=== PATIENT | female | born 1950 | race Caucasian/White ===

== ENCOUNTER 2017-02-10 13:24 | Observation (INO) | payer BC, OTHER ==
--- NOTE | ~2017-02-10 | EKG ---
PATIENT: PEMA MAYER UNIT #: [id number] Ventricular Rate: 74 BPM Atrial Rate: 74 BPM P-R Interval: 142 ms QRS Duration: 90 ms Q-T Interval: 414 ms QTC Calculation(Bezet): 459 ms P Everett: 71 degrees Calculated R Everett: -29 degrees Calculated T Everett: 47 degrees Diagnosis Line: Normal sinus rhythm Diagnosis Line: Normal ECG Diagnosis Line: When compared with ECG of 19-FEB-2011 08:50, Diagnosis Line: No significant change was found Diagnosis Line: Confirmed by NEO TAMAYO MD ([id number]) on 02/11/2017 Diagnosis Line: 10:01:34 AM INTERPRETING MD: BELKIS AMAYA
--- NOTE | ~2017-02-10 | CT71 ---
[facility] A Service of [facility] RADIOLOGY TEXT RESULTS PATIENT: PEMA MAYER LOCATION: [facility] [place] [id number] : 51 UNIT #: [id number] AGE: [address]: Valeri Monsivais MD SEX: F ORDER DR: [id number] [facility] [address] [place], [place] [address] [id number] E MR#: [id number] Acc #: [id number] NAME: PEMA MAYER. : 1950 SEX: F STUDY DATE/TIME: 02/10/2017 14:55 UNIT: [facility] ROOM: STUDY DESCRIPTION: CT Head Wo Contrast Attending Physician: Stone Mishra M.D. Ordering Physician: Stone Mishra M.D. Primary Care Physician: Vamsi Lam M.D. MEDICAL IMAGING REPORT This report is preliminary unless electronic signature is present EXAM CT head without contrast HISTORY Focal neurologic defect and confusion starting today at 08:19. TECHNIQUE Axial CT images were obtained from vertex of the skull through skull base intravenous contrast was administered. This CT exam was performed with one or more of the following radiation dose reduction techniques: automatic exposure control, adjustment of mA and/or kV according to patient size, and iterative reconstruction. FINDINGS No acute cranial hemorrhage is identified. The brain parenchyma is normal in attenuation without focal areas of decreased attenuation seen. There is no midline shift or mass effect. No aggressive osseous abnormalities are seen. Visualized paranasal sinuses are clear. There is partial opacification of the right mastoid air cells, which is new when compared to the prior study. There are no focal soft tissue abnormalities. IMPRESSION 1. No acute intracranial process identified. Specifically, there is no evidence of acute hemorrhage, mass lesion or acute infarct. 2. Patient does have partial opacification of mastoid air cells on the right side, a new finding when compared to the prior study. Dictated by... Bertha Leavitt M.D. THIS IS AN ELECTRONICALLY VERIFIED REPORT [facility] A Service of [facility] RADIOLOGY TEXT RESULTS PATIENT: PEMA MAYER LOCATION: [facility] [place] [id number] : 51 UNIT #: [id number] AGE: [address]: Valeri Monsivais MD SEX: F ORDER DR: Bertha Leavitt M.D. at 02/10/2017 5:24 PM AFF/pcl TD: 02/10/2017 17:01 JOB #: [id number] MEDICAL IMAGING REPORT Page 1 of 1 COPY
--- NOTE | ~2017-02-10 | CR72 ---
[facility] A Service of [facility] RADIOLOGY TEXT RESULTS PATIENT: PEMA MAYER LOCATION: [facility] [id number] : 51 UNIT #: [id number] AGE: [address]: Valeri Monsivais MD SEX: F ORDER DR: [id number] [facility] [address] [place], [place] [address] [id number] E MR#: [id number] Acc #: [id number] NAME: PEMA MAYER. : 1950 SEX: F STUDY DATE/TIME: 02/10/2017 14:03 UNIT: [facility] ROOM: STUDY DESCRIPTION: CR Chest Single View Portable Attending Physician: Stone Mishra M.D. Ordering Physician: Stone Mishra M.D. Primary Care Physician: Vamsi Lam M.D. MEDICAL IMAGING REPORT This report is preliminary unless electronic signature is present EXAM Portable chest HISTORY Chest pain and shortness of air for 1 week. FINDINGS The cardiac size and pulmonary vascularity are normal. Minimal linear atelectasis or scarring in the lateral left base. Mild left mid thoracic curve. The remainder of the chest is negative. No evidence of active disease. IMPRESSION No acute findings and no active disease. Dictated by... Yan Lozano M.D. THIS IS AN ELECTRONICALLY VERIFIED REPORT Yan Lozano M.D. at 02/10/2017 5:47 PM CARMEN/bao TD: 02/10/2017 16:25 JOB #: [id number] MEDICAL IMAGING REPORT Page 1 of 1 COPY
--- NOTE | ~2017-02-10 | CO ---
Unit #: [id number] #: [id number] Patient: PEMA MAYER [id number] [facility] [address] [place], [place] [address] [id number] I MR#: [id number] NAME: PEMA MAYER. ROOM: 335 Age: 66 Sex: F Admission Date: 02/10/2017 : 1950 Attending Physician: Saritha Bales M.D. Primary Care Physician: Vamsi Lam M.D. Requesting Physician: Valeri Monsivais M.D. Consultation Date: 02/10/2017 CONSULTATION REPORT REASON FOR CONSULTATION Chest pain. HISTORY OF PRESENT ILLNESS Ms. Mayer is a pleasant, 66-year-old female seen in room 14 in [facility] emergency room. She has no prior cardiac history. She does have a history of hypertension, dyslipidemia. She has only smoke one pack of cigarettes in her whole life. She has had chest pains on her left side, specifically with her left breast area, since her son was bone 40 years ago she states. She cannot sleep on her left side. 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 Thus she is a very active woman, and does not develop any cardiac symptoms with these activities. Today she was working at [employer], and experienced three sharp pains, that when straight through the left upper chest, approximately 1 o'clock on her breast. She states that she also felt some sinus drainage, from the top left side of her head, into her left jaw. This occurred at the same time. These symptoms had occurred last week, again three sharp pains. Also the jaw pain, but it was nowhere near as severe as today. These episodes would last less than 10 seconds each, not be associated with exertion nor relieved by rest. They were not associated with diaphoresis, dyspneic, or nausea. There was no particular exacerbating or relieving factor. She has noticed many episodes like this over the past several weeks, but last week and this week were the most prominent. The unusual thing about today's episode, which prompted admission was slurred speech. This lasted less than 30 seconds. She was talking to a customer at [employer], and absolutely could not find the right words to say. She did not find any weakness in her body, nor any paraesthesias. This symptom did not recur, but after it was over she felt "weird", sounds like malaise, with tremor and shakiness, but without fever or chills. She has not experienced any PND, orthopnea, syncope, or presyncope. Upon presentation to [facility] emergency room, an ECG dated 02/10/2017 at 13:[address] changes. Left axis deviation was present. Labs show hemoglobin 13.7, white blood count 10.1, platelet count 305,000. Urinalysis was normal. Total cholesterol is 265, Unit #: [id number] #: [id number] Patient: PEMA MAYER triglycerides 457, HDL 47, LDL not calculated. Magnesium still pending. Potassium 3.9, creatinine 0.5. PAST MEDICAL HISTORY 1. 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 No stents or major cardiac procedures were performed. 2. Hypertension. 3. Dyslipidemia. 4. Borderline diabetes. 5. No tobacco abuse. She tried tobacco years ago, only one pack total. FAMILY HISTORY Possible family history of coronary disease, father dying in his 40s suddenly. Mother had CABG at age 75. REVIEW OF SYSTEMS As per history of present illness. Otherwise, as stated below. GENERAL: No recent fever or chills. No recent weight change. ENDOCRINE: Negative for thyroid disease. HEENT: No auditory or visual disturbances. GASTROINTESTINAL: No melena, no hematochezia. RESPIRATORY: No wheezing or significant dyspnea. CARDIOVASCULAR: Vide supra. GENITOURINARY: No dysuria. No back pain suggestive of nephrolithiasis. NEUROLOGIC: No seizure disorder, recent CVA, or TIA. PSYCHOLOGICAL: No depression. MEDICATIONS Norvasc 5 mg daily, Prilosec daily, Zyrtec daily, cranberry, Aleve, B complex, melatonin. ALLERGIES Oxycodone causes hallucinations. Lactose causes diarrhea. Codeine causes upset stomach. SOCIAL HISTORY Works at [employer], nonsmoker, nondrinker. PHYSICAL EXAMINATION GENERAL: Pleasant, alert, no acute distress. VITAL SIGNS: Blood pressure is 144/78, heart rate is 76 and regular, respiratory rate is 16, height 5 feet 4 inches, weight 220 SKIN: Warm and dry. No xanthelasma. MUSCULOSKELETAL: No missing digits. Moves easily for evaluation. NEUROLOGICAL: Appropriate mood and affect. Alert and oriented x3. HEENT: Pupils equal, round and reactive. No oral cyanosis. No icterus. NECK: Carotids clear to auscultation with no carotid bruits. Normal carotid upstroke bilaterally. Thyroid is normal in size and texture without masses or tenderness. CHEST: Significant tenderness left breast, both left submammary, and left supramammary. Overall left breast is very tender, right breast is normal. Clear to auscultation with no rales or wheezes. Good effort. CARDIAC: Normal point of maximum impulse. Normal S1 and S2. No S3, S4 or rub. ABDOMEN: No hepatosplenomegaly, masses or tenderness. Normal bowel sounds. No abdominal bruits heard. Unit #: [id number] #: [id number] Patient: PEMA MAYER EXTREMITIES: No clubbing, cyanosis or edema. Excellent posterior tibial and dorsalis pedis pulses. DIAGNOSTIC STUDIES As above. IMPRESSION 1. Atypical chest pain: I think this is musculoskeletal. She has pendulous breasts, and states that she cannot sleep on her left side. My guess is that some of the pulling of her breast on her support structure is contributing to the pain. May want to consider either CT of the chest regarding atypical pain, or mammogram. I did not perform any type of evaluation on this. I think it would be reasonable to check an echo, and check a stress test, since she is at moderate risk and has an abnormal ECG. We will do a walking Lexiscan. 2. Hypertension: Well treated, fairly well controlled. We will follow this. 3. Dyslipidemia: I think she is probably diabetic, based on her triglycerides. 4. Obesity, with BMI 37. 5. Longtime left breast pain, greater than 40 years. Discussed above. 6. Slurred speech with possible TIA today. Carotid ultrasound, and possible neuro consult. RECOMMENDATIONS 1. Stress test and echo. 2. Check carotids. 3. Possible evaluation of left breast with either CT of mammogram. 4. Check for sleep apnea. 5. Preventive lifestyle measures would be advocated for this patient at the minimum. If there is anything found on the stress test, we will proceed with invasive monitoring. Thank you very much for this consultation. We will follow with you. Dictated by... Ambrose Rhodes M.D. FANNY/caden TD: 02/11/2017 08:45 JOB #: [id number] CONSULTATION REPORT Page 1 of 1 X Ambrose Rhodes MD X CONSULTATION REPORT
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
--- NOTE | ~2017-02-10 | US37 ---
[facility] A Service of [facility] RADIOLOGY TEXT RESULTS PATIENT: PEMA MAYER LOCATION: [facility] 335- : [birth year] UNIT #: [id number] AGE: [address]: Valeri Monsivais MD SEX: F ORDER DR: [id number] [facility] [address] [place], [place] [address] [id number] I MR#: [id number] Acc #: [id number] NAME: PEMA MAYER. : 1950 SEX: F STUDY DATE/TIME: 02/10/2017 21:22 UNIT: [address] ROOM: [facility] STUDY DESCRIPTION: US Carotid W/Doppler Bilateral Attending Physician: Valeri Monsivais M.D. Ordering Physician: Ambrose Rhodes M.D. Primary Care Physician: Vamsi Lam M.D. MEDICAL IMAGING REPORT This report is preliminary unless electronic signature is present EXAM Carotid ultrasound. Confusion and memory loss today. Loss of balance for 1 month. Slurred speech. FINDINGS Ultrasound examination of the carotid arteries demonstrates minimal plaque in the proximal bifurcation vessels bilaterally. Peak systolic velocity in the internal carotid arteries is 208 cm per second on the right and 111 cm per second on the left. This indicates a 50% to 69% diameter stenosis in the right internal carotid artery and less than 50% stenosis in the left internal carotid artery, by NASCET criteria. There is antegrade flow in both vertebral arteries. The external carotid arteries are patent bilaterally. IMPRESSION 1. A 50% to 69% diameter stenosis in the mid right internal carotid artery by NASCET criteria. 2. Less than 50% stenosis in the left internal carotid artery. 3. Mild plaque in the proximal bifurcation vessels bilaterally. 4. Antegrade flow in both vertebral arteries. Dictated by... Yan Lozano M.D. THIS IS AN ELECTRONICALLY VERIFIED REPORT Yan Lozano M.D. at 02/10/2017 11:33 PM DFBrianne/mason [facility] A Service of [facility] RADIOLOGY TEXT RESULTS PATIENT: PEMA MAYER LOCATION: [facility] 335-01 : [birth year] UNIT #: [id number] AGE: [address]: Valeri Monsivais MD SEX: F ORDER DR: TD: 02/10/2017 22:49 JOB #: [id number] MEDICAL IMAGING REPORT Page 1 of 1 COPY
--- NOTE | ~2017-02-10 | ST ---
Unit #: [id number] #: [id number] Patient: PEMA MAYER [id number] [address] [address] [id number] I MR#: [id number] NAME: PEMA MAYER. : 1950 SEX: F STUDY DATE/TIME: 02/11/2017 UNIT: C3A PCU ROOM: 335 STUDY DESCRIPTION: Ambrose Rhodes M.D. Attending Physician: Saritha Bales M.D. Primary Care Physician: Vamsi Lam M.D. CARDIOLOGY REPORT EXAM Stress nuclear and ECG combined. SUMMARY The patient received Lexiscan while walking, as well as Technetium 99 Cardiolite 12.0 and 33.1 mCi at rest and stress respectively. Appropriate views were obtained. FINDINGS The patient's heart rate increased from 63 to 85 and blood pressure decreased from 141/78 to 79/47. The patient did not voice any symptoms during this time. The rest and stress ECG showed no diagnostic ST shifts. Technetium 99 Cardiolite images demonstrated apical thinning but normal perfusion both at rest and stress. There is intestinal artifact present both at rest and stress. Planar images demonstrate no significant patient motion at rest, with mild motion noted at stress. Breast attenuation artifact is present. Summed stress scores is 0. Gated perfusion wall motion analysis demonstrates end-diastolic volume 59 mL, ejection fraction greater than 65%. IMPRESSION 1. Myocardial perfusion scan demonstrates no ischemia or infarction. 2. Normal wall motion with excellent ejection fraction. 3. Normal Lexiscan stress ECG with walking. 1. Dictated by... Ambrose Rhodes M.D. FANNY/caden TD: 02/11/2017 13:06 JOB #: [id number] Unit #: [id number] #: [id number] Patient: PEMA MAYER CARDIOLOGY REPORT Page 1 of 1 X Ambrose Rhodes MD CARDIOLOGY REPORT
--- NOTE | ~2017-02-10 | MR18 ---
[facility] A Service of [facility] RADIOLOGY TEXT RESULTS PATIENT: PEMA MAYER LOCATION: [facility] 335-01 : 51 UNIT #: [id number] AGE: [address]: Saritha Bales MD SEX: F ORDER DR: [id number] [facility] [address] [place], [place] [address] [id number] I MR#: [id number] Acc #: [id number] NAME: PEMA MAYER. : 1950 SEX: F STUDY DATE/TIME: 02/10/2017 18:47 UNIT: A U ROOM: [facility] STUDY DESCRIPTION: MR Brain Wo Contrast Attending Physician: Saritha Baels M.D. Ordering Physician: Valeri Monsivais M.D. Primary Care Physician: Vamsi Lam M.D. MRI CENTER REPORT This report is preliminary unless electronic signature is present. EXAM MRI brain without HISTORY Slurred speech for a week, seizure disorder history, hypertension, stroke/TIA, blood disorder, diabetes. Left facial, shoulder and chest pain. No known injury or cancer. COMMENT MRI of the brain was performed without contrast using routine 1.5T imaging technique. COMPARISON There is a head CT for comparison from 02/10/2017. FINDINGS There is a preliminary wet reading by Dr. Dasilva 201102/10/2017. No evidence for a recent ischemic insult on the diffusion series. Midline structures are unremarkable. There is fluid or inflammatory change in the right side mastoid air cells. Mild white matter signal abnormality is nonspecific likely due to small vessel disease with asymmetrically more prominent involvement in the right cerebral hemisphere. Most focal disease in the periatrial white matter. No extraaxial fluid collection. No intracranial mass effect. The major intracranial flow voids are maintained. The paranasal sinuses are essentially clear. Likely some subtle signal abnormality in the william due to small vessel disease. Mild prominence of perivascular space is noted in general. No MRI evidence for intracranial hemorrhage. IMPRESSION 1. No evidence for a recent ischemic insult on the diffusion series. [facility] A Service of [facility] RADIOLOGY TEXT RESULTS PATIENT: PEMA MAYER LOCATION: [facility] 335-01 : [birth year] UNIT #: [id number] AGE: [address]: Saritha Bales MD SEX: F ORDER DR: 2. Mild probable sequelae of small vessel disease. 3. Small amount of fluid or inflammatory change, right side mastoid air cells. STAT * RESULT Dictated by... Angelica Hussein M.D. THIS IS AN ELECTRONICALLY VERIFIED REPORT Angelica Hussein M.D. at 02/11/2017 2:52 PM TONY/alessio TD: 02/11/2017 09:12 JOB #: [id number] MRI CENTER REPORT Page 1 of 1 COPY
[~2017-02-10 13:24] MED LIST: ACETAMINOPHEN500 M3 PO; ALEVE220 M1 PO; BENADRYL D ALL PO; BENADRYL PO; CIPRO PO; GARLIC; GAS RELIEF125 MG PO; METAMUCIL283 GM PO; MILK OF MAGNESIA PO; NIACIN OTC; NIACIN500 M2 PO; OMEPRAZOLE; OMEPRAZOLE20 M1 PO; OMEPRAZOLE20 M2 PO; ORUDIS75 M1 DOB; OTC ALLERGY MED; OTC CHOLESTEROL MED; PERCOCET10 PO; PERCOCET5/325 PO; PHENERGAN25 M1 PO; PHENERGAN25 MG; POTASSIUM99 M1 PO; PREVACID PO; TYLENOL EXTRA500 M1 PO; [UNRECOGNIZED DRUG - OTHER]; [UNRECOGNIZED DRUG - OTHER] PO
[2017-02-10 13:58] LABS: BASOPHIL% 0.5 % (0-2.5); EOSINOPHIL# 0.1 X10e3 (0-0.7); EOSINOPHIL% 1.4 % (0.0-7.0); HEMATOCRIT 40.3 % (35.0-45.0); HEMOGLOBIN 13.7 gm/dL (12.0-16.0); LYMPHOCYTE% 29.4 % (17.0-45.0); MEAN CELL VOLUME 88.6 FL (83-96); MEAN CORPUSCULAR HGB CONC 33.9 g/dL (30-36); MEAN PLATELET VOLUME 8.4 FL (6.5-11.5); MONOCYTE# 0.5 X10e3 (0-1.0); MONOCYTE% 5.4 % (3.0-12.0); NEUTROPHIL# 6.4 X10e3 (1.5-7.1); NEUTROPHIL% 63.3 % (40-75); PLATELET COUNT 305 X10e3 (140-420); RED BLOOD COUNT 4.55 X10e (3.90-5.30); WHITE BLOOD COUNT 10.1 X10e3 (4.0-10.5)
[2017-02-10 14:00] LABS: DIFF IND NO
[2017-02-10 14:16] LABS: PARTIAL THROMBOPLASTIN TIME 24.9 SECONDS (23.5-31.3); PROTHROMBIN TIME (PATIENT) 10.5 SECONDS (9.6-11.5)
[2017-02-10] MEDS ORDERED: NORVASC PO (14:20)
[2017-02-10 14:22] LABS: URINE SOURCE CLEAN CATCH
[2017-02-10 14:26] LABS: POC - CKMB 1.3 ng/mL (0.0-7.9); POC - TROPONIN <0.05 ng/mL (<=0.05)
[2017-02-10] MEDS ORDERED: PRILOSEC (14:26)
[2017-02-10] MEDS ORDERED: ZYRTEC10 M1 (14:26)
[2017-02-10] MEDS ORDERED: CRANBERRY405 MG (14:27)
[2017-02-10] MEDS ORDERED: B COMPLEX1 EACH (14:27)
[2017-02-10] MEDS ORDERED: ALEVE220 M1 (14:27)
[2017-02-10] MEDS ORDERED: MELATONIN5 M1 PO (14:28)
[2017-02-10 14:29] LABS: ALBUMIN SERUM 4.2 g/dL (3.5-5.0); ALKALINE PHOSPHATASE 66 U/L (32-92); ALT (SGPT) 24 U/L (10-40); AST (SGOT) 23 U/L (10-42); BILIRUBIN,TOTAL 0.5 mg/dL (0.2-2.0); BLOOD UREA NITROGEN 18 mg/dL (9-23); CALCIUM SERUM 9.1 mg/dL (8.4-10.2); CARBON DIOXIDE 24 mmol/L (22-31); CHLORIDE 105 mmol/L (100-111); CREATININE SERUM 0.5 mg/dL (0.6-1.4); GLOM FILT RATE Estimated 101.6 mL/min (>60); GLUCOSE FASTING 112 mg/dL (70-110); POTASSIUM 3.9 mmol/L (3.5-5.1); SODIUM 138 mmol/L (135-145)
[2017-02-10 14:30] LABS: URINE APPEARANCE CLEAR; URINE BILIRUBIN NEG (NEG); URINE BLOOD NEG (NEG); URINE COLOR YELLOW; URINE GLUCOSE NEG (NEG); URINE KETONE NEG (NEG); URINE LEUKOCYTE ESTERASE TRACE (NEG); URINE NITRATE NEG (NEG); URINE PH 5.5 (5-8); URINE PROTEIN NEG (NEG); URINE SPECIFIC GRAVITY 1.024 (1.003-1.035); URINE UROBILINOGEN 0.2 MG/DL (NEG)
[2017-02-10 14:32] LABS: U HYALINE CASTS AUWI 0-2 /[LPF]; URINE BACTERIA AUWI NEG (NEGATIVE); URINE SQUAMOUS EPITHELIAL CELL NONE SEEN /[HPF]
[2017-02-10 14:32] LABS: BILIRUBIN, DIRECT <0.1 mg/dL (0.0-0.2); BILIRUBIN,INDIRECT 0.4 mg/dL (0.0-0.9)
[2017-02-10 14:34] LABS: CULTURE INDICATED? NO
[2017-02-10 15:58] LABS: POC - CKMB 1.4 ng/mL (0.0-7.9); POC - TROPONIN <0.05 ng/mL (<=0.05)
[2017-02-10 17:29] LABS: CHOLESTEROL 265 mg/dL (0-200); HDL CHOLESTEROL 47 mg/dL (35-95)
[2017-02-10 17:33] LABS: TRIGLYCERIDES 457 mg/dL (10-160)
[2017-02-10 23:03] LABS: CK TOTAL 45 IU/L (26-140)
[2017-02-11 05:28] LABS: HEMATOCRIT 36.6 % (35.0-45.0); HEMOGLOBIN 12.2 gm/dL (12.0-16.0); MEAN CELL VOLUME 89.9 FL (83-96); MEAN CORPUSCULAR HGB CONC 33.4 g/dL (30-36); MEAN PLATELET VOLUME 8.4 FL (6.5-11.5); RED BLOOD COUNT 4.07 X10e (3.90-5.30); WHITE BLOOD COUNT 8.5 X10e3 (4.0-10.5)
[2017-02-11 05:46] LABS: PROTHROMBIN TIME (PATIENT) 10.7 SECONDS (9.6-11.5)
[2017-02-11 05:59] LABS: CK TOTAL 39 IU/L (26-140)
[2017-02-11 06:08] LABS: ALBUMIN SERUM 3.7 g/dL (3.5-5.0); BILIRUBIN,TOTAL 0.4 mg/dL (0.2-2.0); CALCIUM SERUM 8.9 mg/dL (8.4-10.2); CREATININE SERUM 0.5 mg/dL (0.6-1.4); GLOM FILT RATE Estimated 101.6 mL/min (>60); POTASSIUM 3.8 mmol/L (3.5-5.1); PROTEIN TOTAL SERUM 6.3 g/dL (6.0-8.3)
[2017-02-11] MEDS ORDERED: LIPITOR20 MG PO (18:19)
[2017-02-11] MEDS ORDERED: LOW DOSE ASPIRI81 M1 PO (18:20)
== END 2017-02-11 19:21 | disposition home or self-care (01) ==
LOC: CED 13:24 → CEDOF 16:30 → CED 16:47 → C3A PCU 16:47 → CEDOF 20:34 → C3A PCU 02-11 08:23
PROVIDERS: Emergency Medicine; Family Medicine
DX: R07.89 Other chest pain (principal); I10 Essential (primary) hypertension; E78.5 Hyperlipidemia, unspecified; E66.9 Obesity, unspecified; Z68.37 Body mass index [BMI] 37.0-37.9, adult; N64.4 Mastodynia; R47.81 Slurred speech; R73.03 Prediabetes; K21.9 Gastro-esophageal reflux disease without esophagitis; Z82.49 Family history of ischemic heart disease and other diseases of the circulatory system; I65.23 Occlusion and stenosis of bilateral carotid arteries; K57.90 Diverticulosis of intestine, part unspecified, without perforation or abscess without bleeding; Z90.49 Acquired absence of other specified parts of digestive tract; Z86.69 Personal history of other diseases of the nervous system and sense organs
CPT/HCPCS: 36415; 70450; 70551; 71010; 78452; 80048; 80053; 80061; 80076; 81003; 82550; 82553; 82947; 83036; 84443; 84484; 85025; 85027; 85610; 85730; 93005; 93017; 93306; 93880; 99285; A9500; G0378; J2785